=== PATIENT | female | born 1975 | race Caucasian/White ===

== ENCOUNTER 2023-08-17 07:29 | Day surgery (SDC) | payer BC, OTHER ==
[2023-08-12 11:25] VITALS: BMI 27.4
[2023-08-17] MEDS ORDERED: LIDOCAINE 1% (10MG/ML) FOR IV START INTRADERMA PRN (07:36)
[2023-08-17] MEDS ORDERED: ONDANSETRON 4 MG/2 ML VIAL IVP PRN (07:36)
[2023-08-17] MEDS ORDERED: LACTATED RINGERS 1,000 ML IV SCH (07:36)
[2023-08-17 08:15] VITALS: TEMP 96.2
[2023-08-17] MEDS ORDERED: PROPOFOL 10 MG/ML 20 ML VIAL IV ONE (08:39)
[2023-08-17] MEDS ORDERED: LIDOCAINE 1% INJ 10MG/ML (20 ML MDV) ONE (08:39)
--- NOTE | 2023-08-17 09:01 | P.PCN ---
Date of Procedure: 08/17/23 Procedure(s) Performed: Brief history: Patient is a pleasant 48-year-old white female scheduled for an elective upper endoscopy as well as colonoscopy as a part of evaluation of GERD and screening for colon cancer. She is currently on Prevacid 30 mg daily and has daily heartburn. Procedure performed: Esophagogastroduodenoscopy with biopsy Colonoscopy with snare polypectomy. Preoperative diagnosis: GERD Screening for colon cancer Anesthesia: MAC Procedure: After informed consent was obtained from the patient was brought into the endoscopy unit and IV sedation was administered by anesthesia under continuous monitoring. Initially upper endoscopy was done. The Olympus GF 160 video endoscope was inserted inserted into the mouth and esophagus intubated without any difficulty and was gradually advanced into the stomach and duodenum and carefully examined. The bulb and second part of the duodenum appeared normal. The scope was then withdrawn into the stomach adequately insufflated with air and upon careful examination the antrum and body, cardia and fundus appeared normal. The scope was then withdrawn into the esophagus. Hiatal hernia noted. The GE junction was located at 35 cm to the incisors. It appeared irregular with 2 superficial erosions and ulcerations consistent with LA grade C reflux esophagitis.. There was evidence of Martin's esophagus extending 1.5 cm proximal to the GE junction which was biopsied. Rest of the esophagus appeared normal. Patient tolerated the procedure well. At this time the patient continued to remain sedation. Initial digital rectal examination was normal. Olympus CF 160 video colonoscope was then inserted into the rectum and gradually advanced to the cecum without any difficulty. Careful examination was performed as the scope was gradually being withdrawn. The prep was excellent. The cecum, ascending colon, transverse colon normal. The descending colon there was a 5 limited polyp that was removed by cold snare polypectomy. In the distal sigmoid colon there was a 5 limited polyp that was removed by cold snare polypectomy. Rest of the descending colon, sigmoid colon and rectum appeared normal. Retroflexion was performed in the rectum and no lesions were noted. Patient tolerated the procedure well. Impression: 1. Upper endoscopy revealed small hiatal hernia, Martin's esophagus and LA grade C reflux esophagitis 2. Colonoscopy revealed 5 mm descending colon polyp and a 5 mm distal sigmoid colon polyp status post cold snare polypectomy Recommendations: Findings of this examination were discussed with the patient as well as a family. She was advised to follow with the biopsies are spread the biopsy confirms the presence of Martin's esophagus she was advised to have a repeat upper endoscopy 3 years. In the meantime she will increase the Prevacid 30 mg twice daily and follow antireflux measures. The biopsy of colon polyps tubular adenoma she can have a repeat colonoscopy in 5 years. Follow up in office in 3 months
[2023-08-17 09:33] VITALS: BP 101/65; PULSE 71; RESP 18
== END 2023-08-17 09:58 | disposition home or self-care (01) ==
LOC: ORWHC2ENDO 07:29
PROVIDERS: ATTEND Internal Medicine Gastroenterology
DX: Z12.11 Encounter for screening for malignant neoplasm of colon (principal); D12.4 Benign neoplasm of descending colon; D12.5 Benign neoplasm of sigmoid colon; K21.00 Gastro-esophageal reflux disease with esophagitis, without bleeding; K44.9 Diaphragmatic hernia without obstruction or gangrene; K22.70 Barrett's esophagus without dysplasia; F17.200 Nicotine dependence, unspecified, uncomplicated; Z79.899 Other long term (current) drug therapy
CPT/HCPCS: 81025; 88305; 45385; 43239; J2001; J2704